=== PATIENT | female | born 1940 | race Caucasian/White ===

== ENCOUNTER 2018-05-26 07:11 | Emergency (ER) | payer MEDICARE ==
[2018-05-26 08:07] LABS: #Basophils 0.1 thou/uL (0.0-0.2); #Eosinphils 0.1 thou/uL (0.0-0.7); #Lymphocytes 1.8 thou/uL (1.20-3.40); #Monocytes 0.8 thou/uL (0.11-0.59); %Basophils 0.5 % (0.0-1.0); %Eosinophils 0.8 % (0.0-10.0); %Monocytes 7.9 % (0.0-10.0); %Neutrophils 71.8 % (42.0-75.0); Hemoglobin 13.6 g/dL (12.0-16.0); Mean Corpuscular HGB CONC 30.4 g/dL (32.0-36.0); Mean Corpuscular Hemoglobin 27.5 pg (27.0-31.0); Mean Corpuscular Volume 90.7 fL (78.0-98.0); Platelet Count 242 thou/uL (130-400); RBC Distribution Width 12.4 % (11.5-14.5); Red Blood Cell (RBC) Count 4.92 mill/uL (4.20-5.40); White Blood Cell (WBC) Count 9.7 thou/uL (4.8-10.8)
[2018-05-26] MEDS ORDERED: Aspirin Chewable 81 MG TAB ONE (08:12)
[2018-05-26] MEDS ORDERED: Nitroglycerin 0.4 MG TAB 1 EACH ONE (08:25)
[2018-05-26 08:28] LABS: ALT (SGPT) 24 U/L (8-55); AST (SGOT) 82 U/L (5-34); Alkaline Phosphatase 73 U/L (40-150); Anion Gap 13 mmol/L (10-20); BUN (Urea Nitrogen) 15 mg/dL (9.8-20.1); Bilirubin, Total 0.5 mg/dL (0.2-1.2); Calc. Creatinine Clearance 0 mL/min (70-130); Calcium 9.8 mg/dL (7.8-10.44); Carbon Dioxide 28 mmol/L (23-31); Chloride 101 mmol/L (98-107); Estimated GFR-MDRD 75; Globulin 2.7 g/dL (2.4-3.5); Glucose 136 mg/dL (83-110); Potassium 4.2 mmol/L (3.5-5.1); Protein, Total 6.7 g/dL (6.0-8.3); Sodium 138 mmol/L (136-145)
[2018-05-26] MEDS ORDERED: Heparin 25,000 units/D5W 500 ML ONE (08:32)
[2018-05-26] MEDS ORDERED: Heparin 5,000 UNITS/ML VIAL ONE (08:32)
--- NOTE | 2018-05-26 08:39 | RAD ---
FRONTAL RADIOGRAPH CHEST PORTABLE UPRIGHT: Date: 05/26/18 COMPARISON: None. HISTORY: Shortness of breath. FINDINGS: Cardiac silhouette is prominent. There is mild pulmonary vascular prominence with perihilar interstit ial density. No pneumothorax. No air space disease noted on the right. Cardiac silhouette appears enlarged. There is density opacity in the left base of uncertain significa nce given body habitus and prominence of cardiac silhouette. The degree of the opacity in the left ba se may signify hiatal hernia, volume loss, or infiltrate. The former is favored. IMPRESSION: No definite acute findings. Assessment of left base is limited secondary to body habitus and prominen ce of cardiac silhouette. POS: [facility]
[2018-05-26 08:53] LABS: CKMB 72.4 ng/mL (0-6.6)
== END 2018-05-26 08:48 | disposition short-term general hospital (02) ==
LOC: MADERS 07:11
DX: I21.3 ST elevation (STEMI) myocardial infarction of unspecified site (principal); K21.9 Gastro-esophageal reflux disease without esophagitis; Z79.899 Other long term (current) drug therapy
CPT/HCPCS: 71045; 80053; 82553; 83880; 84484; 85025; 93005; 96374; 96375; J1644